=== PATIENT | male | born 1985 | race Caucasian/White ===

== ENCOUNTER 2023-04-27 01:57 | Emergency (ER) | payer MEDICAID ==
[~2023-04-27] VITALS: Ht 160 cm; Wt 104.3 kg
[2023-04-27 02:23] VITALS: BP 116/79; PULSE 111; RESP 16; TEMP 98.6; O2SAT 100
[2023-04-27 02:33] VITALS: BP 116/79; PULSE 111; RESP 16; TEMP 98.6; O2SAT 99
[2023-04-27] MEDS ORDERED: oxyCODONE 10 MG TABER PO ONE (03:21)
[2023-04-27] MEDS: KETOROLAC 30 MG/ML VIAL IM ONE (03:35)
[2023-04-27] MEDS: oxyCODONE 10 MG TABER PO ONE (03:37)
[2023-04-27] MEDS ORDERED: OXYC5TAB4 PO (04:22)
== END 2023-04-27 04:49 | disposition home or self-care (01) ==
LOC: MED 01:57
DX: S82.002A Unspecified fracture of left patella, initial encounter for closed fracture (principal); Z79.899 Other long term (current) drug therapy; W01.0XXA Fall on same level from slipping, tripping and stumbling without subsequent striking against object, initial encounter; Y92.89 Other specified places as the place of occurrence of the external cause; Y93.89 Activity, other specified; Y99.8 Other external cause status
CPT/HCPCS: 29505; 73562; 96372; 99283; J1885; Q0092